=== PATIENT | female | born 1980 | race Caucasian/White ===

== ENCOUNTER 2018-06-17 16:27 | Emergency (ER) | payer BC, MEDICAID ==
[~2018-06-17 16:27] MED LIST: ACE3 PO; ALB18R INH; AMO500 PO; AMOX500T10 PO; AZIT-18 PO; AZIT1PAC23 PO; BENZ200C38 PO; CEFU500T50 PO; CEPH500C24 PO; CEPH500T7 PO; CLA500 PO; DM/P295L PO; HYDR-3250 PO; HYDR-4309 PO; IBU800 PO; KET10 PO; LOR5/325 PO; MED150I IM; NORE0.353; NORE0.353 PO; OMEP-153 PO; ONDA4TAB PO; PEN250 PO; PER PO; PHEN120S16 PO; ROBC PO; TRA50 PO; TRAM100T22 PO
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
[2018-06-17] MEDS ORDERED: ALBUTEROL/IPRATROPIUM 3 ML NEB NEB ONE (16:50)
--- NOTE | 2018-06-17 17:36 | RADIOLOGY IMAGING REPORT ---
FACILITY: [facility] PATIENT NAME: Joann Suarez : 1980 MR: [id number] V: [id number] EXAM DATE: ORDERING PHYSICIAN: NANCY JACKSON [place]CHNOLOG[place] [facility] [place] Joann [place] : 1980 Visit/Account:[id number] Date of Sevice: 06/17/2018 EXAMINATION: PA and Lateral Chest 06/17/2018 4:50 PM HISTORY: cough COMPARISON: 06/24/2017 FINDINGS: Cardiomediastinal contours: Normal Lungs and pleura: Normal Bones/soft tissues: Normal IMPRESSION: No acute cardiopulmonary abnormality. Report Dictated By: Miguel Alvarez MD at 06/17/2018 5:32 PM Report E-Signed By: Miguel Alvarez MD at 06/17/2018 5:33 PM WSN:[id number]
[2018-06-17] MEDS ORDERED: ALBU8.5H IH (17:51)
[2018-06-17] MEDS ORDERED: ROBC PO (17:51)
[2018-06-17] MEDS ORDERED: PRED20TA6 PO (17:51)
[2018-06-17 17:58] VITALS: BP 121/71
== END 2018-06-17 18:01 | disposition home or self-care (01) ==
LOC: ER 16:38
DX: J06.9 Acute upper respiratory infection, unspecified (principal)
CPT/HCPCS: 71046; 87081; 87880; 94640; 99283; J7620

== ENCOUNTER 2018-08-19 13:08 | Emergency (ER) | payer BC, MEDICAID ==
[~2018-08-19 13:08] MED LIST changes: +ALBU8.5H IH; -HYDR-4309 PO; +HYDR-653 PO; +PRED20TA6 PO
[2018-08-19 13:13] VITALS: BP 146/120
--- NOTE | 2018-08-19 13:16 | ER Report ---
History and Physical Time Seen By MD: 13:14 HPI/ROS CHIEF COMPLAINT: Dental pain HISTORY OF PRESENT ILLNESS: Patient is a 37-year-old female who states last evening one of the fillings from her lower teeth fell off and is now in severe pain. Patient does have a dentist but was unable to get to them today. Pain 10 out of 10. He denies any fevers or chills. Allergies: Coded Allergies: oxycodone HCl (Verified Allergy, Intermediate, VOMITING, 08/19/18) Home Meds Active Scripts Amoxicillin (AMOXICILLIN) 500 Mg Capsule, 1 CAP PO Q8H, #15 CAPSULE 0 Refills TAKE ONE CAPSULE BY MOUTH EVERY 8 HOURS Prov:DIANA CHURCHILL MD 08/19/18 Hydrocodone Bit/Acetaminophen (HYDROCODON-ACETAMINOPHEN 5-325) 1 Each Tablet, 1 EACH PO Q4-6H PRN for PAIN, #12 TAB 0 Refills TAKE ONE TABLET BY MOUTH EVERY 4-6 HOURS NEEDED FOR PAIN Prov:DIANA CHURCHILL MD 08/19/18 Discontinued Scripts Guaifenesin/Codeine (GUAIFENESIN-CODEINE SYRUP) 5 Ml Syrp, 5 ML PO Q6H PRN for COUGH, #120 ML 0 Refills Prov:NANCY JACKSON MD 06/17/18 Prednisone (PREDNISONE) 20 Mg Tablet, 40 MG PO QDAY, #8 TAB 0 Refills Prov:NANCY JACKSON MD 06/17/18 Albuterol Sulfate 90 Mcg/Act (PROAIR HFA 90 MCG/ACT) 8.5 Gm Hfa.aer.ad, 2 PUFF IH Q4-6H PRN for WHEEZING, #1 INHALER 0 Refills Prov:NANCY JACKSON MD 06/17/18 Past Medical/Surgical History Noncontributory Hx Smoking: No Smoking Status: Never Smoker Exposure to Second Hand Smoke?: Yes Hx Substance Use Disorder: No Hx Alcohol Use: No Constitutional Vital Sign - Last 24 Hours 08/19/18 13:13 Temp 97.7 Pulse 87 Resp 18 B/P (MAP) 146/120 Pulse Ox 92 O2 Delivery Room Air Physical Exam General Appearance: Alert, no distress. Ears uncomfortable due to pain Eyes: Pupils equal and round no pallor or injection. ENT, Mouth: Ears: Tympanic membranes are normal. Nose: No bleeding. Mouth: Mucous membranes are moist. Patient with poor dentition overall however there is a filling that has fallen off the left lower 2nd premolar Throat: No erythema or exudates there is no tonsillar hypertrophy and uvula is midline. Musculoskeletal: Neck is supple non tender, no adenopathy. Skin: Warm and dry, no rashes. [ ] Medical Decision Making ED Course/Re-evaluation ED Course 08/19/2018 1:54:14 pm after verbal informed consent was obtained a 20% bands can swallow was placed along the lower left gum to achieve anesthesia of the gumline. This was followed by injection of 1 mL of 0.5%. He came for a periapical block which had excellent effect. The affected tooth and gumline were dried. The affected tooth with is then covered in multiple layers of Dermabond. Patient tolerated procedure well Decision to Disposition Date: Aug 19, 2018 Decision to Disposition Time: 13:55 Depart Departure Latest Vital Signs Vital Signs Date Time Temp Pulse Resp B/P (MAP) Pulse Ox O2 Delivery O2 Flow Rate FiO2 08/19/18 13:13 97.7 87 18 146/120 92 Room Air Impression: Primary Impression: Pain, dental Condition: Improved Disposition: HOME OR SELF-CARE Referrals: ЮЛИЯ PRATT MD (PCP) New Scripts Amoxicillin (AMOXICILLIN) 500 Mg Capsule 1 CAP PO Q8H, #15 CAPSULE 0 Refills TAKE ONE CAPSULE BY MOUTH EVERY 8 HOURS Prov: DIANA CHURCHILL MD 08/19/18 Hydrocodone Bit/Acetaminophen (HYDROCODON-ACETAMINOPHEN 5-325) 1 Each Tablet 1 EACH PO Q4-6H PRN for PAIN, #12 TAB 0 Refills TAKE ONE TABLET BY MOUTH EVERY 4-6 HOURS NEEDED FOR PAIN Prov: DIANA CHURCHILL MD 08/19/18 Patient Instructions: Dental Caries (DC) Additional Instructions: Call to schedule an appointment with your dentist for replacement of filling DIANA CHURCHILL MD Aug 19, 2018 13:16
[2018-08-19] MEDS ORDERED: LOR5/325 PO (13:48)
[2018-08-19] MEDS ORDERED: AMOX-362 PO (13:48)
== END 2018-08-19 13:52 | disposition home or self-care (01) ==
LOC: ER 13:14
DX: K08.89 Other specified disorders of teeth and supporting structures (principal)
CPT/HCPCS: 99283

== ENCOUNTER 2018-08-21 09:34 | Emergency (ER) | payer MEDICAID ==
[~2018-08-21 09:34] MED LIST changes: +AMOX-362 PO
--- NOTE | 2018-08-21 09:54 | ER Report ---
History and Physical Time Seen By MD: 09:51 Hx. of Stated Complaint: Patient seen last week and was packed with wax in a tooth. Woke up today with new swelling and can't get into see a dentist until next week. HPI/ROS CHIEF COMPLAINT: Neck Swelling HISTORY OF PRESENT ILLNESS: Patient was seen yesterday for dental pain and had a dental block performed she was started on amoxicillin which she is taking this morning she woke up some swelling to the left side. No fevers or meningismus. She denies any difficulty swallowing. She denies any difficulty breathing. REVIEW OF SYSTEMS: Respiratory: No cough, no dyspnea. Cardiovascular: No chest pain, no palpitations. Gastrointestinal: No vomiting, no abdominal pain. Musculoskeletal: No back pain.Left sided neck swelling Allergies: Coded Allergies: oxycodone HCl (Verified Allergy, Intermediate, VOMITING, 08/21/18) Home Meds Active Scripts Amoxicillin (AMOXICILLIN) 500 Mg Capsule, 1 CAP PO Q8H, #15 CAPSULE 0 Refills TAKE ONE CAPSULE BY MOUTH EVERY 8 HOURS Prov:DIANA CHURCHILL MD 08/19/18 Hydrocodone Bit/Acetaminophen (HYDROCODON-ACETAMINOPHEN 5-325) 1 Each Tablet, 1 EACH PO Q4-6H PRN for PAIN, #12 TAB 0 Refills TAKE ONE TABLET BY MOUTH EVERY 4-6 HOURS NEEDED FOR PAIN Prov:DIANA CHURCHILL MD 08/19/18 Discontinued Scripts Guaifenesin/Codeine (GUAIFENESIN-CODEINE SYRUP) 5 Ml Syrp, 5 ML PO Q6H PRN for COUGH, #120 ML 0 Refills Prov:NANCY JACKSON MD 06/17/18 Prednisone (PREDNISONE) 20 Mg Tablet, 40 MG PO QDAY, #8 TAB 0 Refills Prov:NANCY JACKSON MD 06/17/18 Albuterol Sulfate 90 Mcg/Act (PROAIR HFA 90 MCG/ACT) 8.5 Gm Hfa.aer.ad, 2 PUFF IH Q4-6H PRN for WHEEZING, #1 INHALER 0 Refills Prov:NANCY JACKSON MD 06/17/18 Past Medical/Surgical History Noncontributory towards this chief complaint Hx Smoking: No Smoking Status: Never Smoker Exposure to Second Hand Smoke?: Yes Hx Substance Use Disorder: No Hx Alcohol Use: No Constitutional Vital Sign - Last 24 Hours 08/21/18 09:38 Temp 97.6 Pulse 78 Resp 16 B/P (MAP) 138/95 Pulse Ox 97 O2 Delivery Room Air Physical Exam General Appearance: Alert, no distress. Eyes: Pupils equal and round no pallor or injection. ENT, Mouth: Ears: Tympanic membranes are normal. Her symptoms swelling and mild erythema to the left side of the neck. Nose: No bleeding. Mouth: Mucous membranes are moist. Dentition Throat: No erythema or exudates there is no tonsillar hypertrophy and uvula is midline. Musculoskeletal: Neck is supple non tender, no adenopathy. Skin: Warm and dry, no rashes. Medical Decision Making Data Points Result Diagram: 08/21/18 1018 08/21/18 1018 Laboratory Hematology Test 08/21/18 10:18 08/21/18 10:25 Red Blood Count 5.36 M/uL (4.17-5.56) Mean Corpuscular Volume 77.7 fL (80.0-96.0) Mean Corpuscular Hemoglobin 25.9 pg (26.0-33.0) Mean Corpuscular Hemoglobin Concent 33.4 g/dL (32.0-36.0) Red Cell Distribution Width 16.1 % (11.5-14.5) Mean Platelet Volume 8.0 fL (7.2-11.1) Neutrophils (%) (Auto) 74.4 % (39.4-72.5) Lymphocytes (%) (Auto) 20.3 % (17.6-49.6) Monocytes (%) (Auto) 4.6 % (4.1-12.4) Eosinophils (%) (Auto) 0.3 % (0.4-6.7) Basophils (%) (Auto) 0.4 % (0.3-1.4) Nucleated RBC Relative Count (auto) 0.0 /100WBC Neutrophils # (Auto) 5.7 K/uL (2.0-7.4) Lymphocytes # (Auto) 1.5 K/uL (1.3-3.6) Monocytes # (Auto) 0.3 K/uL (0.3-1.0) Eosinophils # (Auto) 0.0 K/uL (0.0-0.5) Basophils # (Auto) 0.0 K/uL (0.0-0.1) Nucleated RBC Absolute Count (auto) 0.00 K/uL Sodium Level 138 mmol/L (137-145) Potassium Level 4.0 mmol/L (3.5-5.0) Chloride Level 107 mmol/L (98-107) Carbon Dioxide Level 24 mmol/L (22-31) Blood Urea Nitrogen 5 mg/dl (7-18) Creatinine 0.50 mg/dl (0.52-1.04) Glomerular Filtration Rate Calc > 60.0 Random Glucose 95 mg/dl (75-110) Calcium Level 8.5 mg/dl (8.4-10.2) Total Bilirubin 0.4 mg/dl (0.2-1.3) Aspartate Amino Transf (AST/SGOT) 20 U/L (0-35) Alanine Aminotransferase (ALT/SGPT) 21 U/L (0-56) Alkaline Phosphatase 49 U/L (0-126) Total Protein 7.0 g/dl (6.3-8.2) Albumin 3.7 g/dl (3.5-5.0) Urine HCG, Qualitative Negative (NEGATIVE) Chemistry Test 08/21/18 10:18 08/21/18 10:25 White Blood Count 7.6 k/uL (4.5-11.0) Red Blood Count 5.36 M/uL (4.17-5.56) Hemoglobin 13.9 g/dL (12.0-16.0) Hematocrit 41.6 % (34.0-47.0) Mean Corpuscular Volume 77.7 fL (80.0-96.0) Mean Corpuscular Hemoglobin 25.9 pg (26.0-33.0) Mean Corpuscular Hemoglobin Concent 33.4 g/dL (32.0-36.0) Red Cell Distribution Width 16.1 % (11.5-14.5) Platelet Count 313 K/uL (150-450) Mean Platelet Volume 8.0 fL (7.2-11.1) Neutrophils (%) (Auto) 74.4 % (39.4-72.5) Lymphocytes (%) (Auto) 20.3 % (17.6-49.6) Monocytes (%) (Auto) 4.6 % (4.1-12.4) Eosinophils (%) (Auto) 0.3 % (0.4-6.7) Basophils (%) (Auto) 0.4 % (0.3-1.4) Nucleated RBC Relative Count (auto) 0.0 /100WBC Neutrophils # (Auto) 5.7 K/uL (2.0-7.4) Lymphocytes # (Auto) 1.5 K/uL (1.3-3.6) Monocytes # (Auto) 0.3 K/uL (0.3-1.0) Eosinophils # (Auto) 0.0 K/uL (0.0-0.5) Basophils # (Auto) 0.0 K/uL (0.0-0.1) Nucleated RBC Absolute Count (auto) 0.00 K/uL Glomerular Filtration Rate Calc > 60.0 Calcium Level 8.5 mg/dl (8.4-10.2) Total Bilirubin 0.4 mg/dl (0.2-1.3) Aspartate Amino Transf (AST/SGOT) 20 U/L (0-35) Alanine Aminotransferase (ALT/SGPT) 21 U/L (0-56) Alkaline Phosphatase 49 U/L (0-126) Total Protein 7.0 g/dl (6.3-8.2) Albumin 3.7 g/dl (3.5-5.0) Urine HCG, Qualitative Negative (NEGATIVE) Urinalysis Test 08/21/18 10:25 Urine HCG, Qualitative Negative (NEGATIVE) EKG/Imaging Imaging FACILITY: [facility] PATIENT NAME: Joann Suarez : 1980 MR: [id number] V: [id number] EXAM DATE: ORDERING PHYSICIAN: DIANA CHURCHILL TECHNOLOGIST: Location: [facility] - [place] Patient: Joann Suarez : 1980 Visit/Account:[id number] Date of Sevice: 08/21/2018 EXAMINATION: CT neck with IV contrast HISTORY: Face and neck swelling, left side TECHNIQUE: CT was obtained through the neck following IV contrast administration. Sagittal and coronal reformatted images were generated. 75 mL of IV Isovue-370 injected. One of the following dose optimization techniques was utilized in the performance of this exam: automated exposure control; adjustment of the mA and/or kV according to patient size; or use of iterative reconstruction technique. Specific details can be referenced in the facility's radiology CT exam operational policy. COMPARISON: None. FINDINGS: Parotid/submandibular and thyroid glands: Normal. Pharyngeal and retropharyngeal soft tissues: Normal. Oral cavity and hot tar roofer space soft tissues: Normal. Larynx/glottis and airway: Normal. Other: Left jaw region subcutaneous edema. No abscess seen in this area. Lymph nodes: Normal. Vessels: No significant finding. Visualized orbits / brain: No significant finding. Upper chest: Normal. Bones/sinuses/mastoid air cells: Dental cavity involving one of the right mandibular teeth noted. Otherwise unremarkable osseous structures. IMPRESSION: 1. Left jaw subcutaneous edema in keeping with cellulitis. No abscess seen in this area. 2. Dental cavity involving a right mandibular tooth, correlate with exam. 3. Otherwise normal neck CT. Report Dictated By: Agapito Tamayo MD at 08/21/2018 11:34 AM Report E-Signed By: Agapito Tamayo MD at 08/21/2018 11:41 AM WSN:[email or web address] ED Course/Re-evaluation ED Course 08/21/2018 9:55:25 am At this time will be to place an IV for IV antibiotics we will also perform a IV contrast CT of the head and neck. Re-evaluation 08/21/2018 11:56:[address] shows cellulitis to the left jaw without evidence of abscess we'll continue antibiotics. Decision to Disposition Date: Aug 21, 2018 Decision to Disposition Time: 11:56 Depart Departure Latest Vital Signs Vital Signs Date Time Temp Pulse Resp B/P (MAP) Pulse Ox O2 Delivery O2 Flow Rate FiO2 08/21/18 09:38 97.6 78 16 138/95 97 Room Air Impression: Primary Impression: Dental caries Additional Impression: Facial cellulitis Condition: Stable Disposition: HOME OR SELF-CARE New Scripts Clindamycin Hcl (CLINDAMYCIN HCL) 300 Mg Capsule 300 MG PO Q6H, #40 CAPSULE 0 Refills Prov: DIANA CHURCHILL MD 08/21/18 Patient Instructions: Cellulitis (DC) Additional Instructions: Return to the Emergency room if you develop fever; worsening swelling or intractable pain Problem Qualifiers DIANA CHURCHILL MD Aug 21, 2018 09:54
[2018-08-21] MEDS ORDERED: NS(*) 0.9% 1000 ML BAG 1,000 ML IV ONE (09:56)
[2018-08-21] MEDS ORDERED: CLINDAMYCIN(*) 600 MG/NS 50 ML 50 ML IVPB ONE (10:00)
[2018-08-21] MEDS ORDERED: IOPAMIDOL 76% 75 ML INFUS BTL 75 ML ONE (10:15)
[2018-08-21 10:29] LABS: PLATELET COUNT, AUTOMATED 313 K/uL (150-450)
[2018-08-21 11:04] VITALS: BP 128/73
--- NOTE | 2018-08-21 11:45 | RADIOLOGY IMAGING REPORT ---
FACILITY: [facility] PATIENT NAME: Joann Suarez : 1980 MR: [id number] V: [id number] EXAM DATE: ORDERING PHYSICIAN: DIANA CHURCHILL [place]CHN[place] [facility] [place]ann Su[place] : 1980 Visit/Account:[id number] Date of Sevice: 08/21/2018 EXAMINATION: CT neck with IV contrast HISTORY: Face and neck swelling, left side TECHNIQUE: CT was obtained through the neck following IV contrast administration. Sagittal and co catalina reformatted images were generated. 75 mL of IV Isovue-370 injected. One of the following dose optimization techniques was utilized in the performance of this exam: autom ated exposure control; adjustment of the mA and/or kV according to patient size; or use of iterative reconstruction technique. Specific details can be referenced in the facility's radiology CT exam ope rational policy. COMPARISON: None. FINDINGS: Parotid/submandibular and thyroid glands: Normal. Pharyngeal and retropharyngeal soft tissues: Normal. Oral cavity and truck despatcher space soft tissues: Normal. Larynx/glottis and airway: Normal. Other: Left jaw region subcutaneous edema. No abscess seen in this area. Lymph nodes: Normal. Vessels: No significant finding. Visualized orbits / brain: No significant finding. Upper chest: Normal. Bones/sinuses/mastoid air cells: Dental cavity involving one of the right mandibular teeth noted. Oth erwise unremarkable osseous structures. IMPRESSION: 1. Left jaw subcutaneous edema in keeping with cellulitis. No abscess seen in this area. 2. Dental cavity involving a right mandibular tooth, correlate with exam. 3. Otherwise normal neck CT. Report Dictated By: Agapito Tamayo MD at 08/21/2018 11:34 AM Report E-Signed By: Agapito Tamayo MD at 08/21/2018 11:41 AM WSN:[email or web address]
[2018-08-21] MEDS ORDERED: CLIN300C99 PO (12:00)
== END 2018-08-21 12:15 | disposition home or self-care (01) ==
LOC: ER 09:53
DX: K02.9 Dental caries, unspecified (principal); L03.211 Cellulitis of face
CPT/HCPCS: 70491; 81025; 85025; 96361; 96365; 99284; J3490; J7030; Q9967; 82040; 82247; 82310; 82374; 82435; 82565; 82947; 84075; 84132; 84155; 84295; 84450; 84460; 84520